=== PATIENT | male | born 1935 | race Caucasian/White ===

== ENCOUNTER 2020-08-20 14:08 | Inpatient (IN) | payer OTHER ==
[~2020-08-20] VITALS: Ht 165.1 cm; Wt 69.9 kg
--- NOTE | 2020-08-20 15:59 | NUR ---
family eula left contact # [phone]
--- NOTE | 2020-08-20 16:00 | NUR ---
[id number] home, cough, sob and fever x 1 week. Poor po intake x 3 weeks. 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 placed on 4L/min via nc. Patient a/ox3, attached to the monitor technician. IV line established, blood drawn and sent to lab.
--- NOTE | 2020-08-20 16:53 | NUR ---
MOVE SHEET SUBMITTED
[2020-08-20 17:06] LABS: BASOPHILS % (AUTO) 0.3 % (0.0-2.0); EOSINOPHILS % (AUTO) 0.2 % (0.0-6.0); HEMATOCRIT 38 % (39-51); HEMOGLOBIN 12.3 g/dL (13.5-17.5); LYMPHOCYTES # (AUTO) 1.1 /CMM (0.8-4.8); LYMPHOCYTES % (AUTO) 14.7 % (20.0-44.0); MEAN CORPUSCULAR HGB CONC 33 g/dl (31.0-36.0); MEAN CORPUSCULAR VOLUME 87 fL (80-96); MONOCYTES # (AUTO) 0.7 /CMM (0.1-1.30); MONOCYTES % (AUTO) 9.5 % (2.0-12.0); NEUTROPHILS # (AUTO) 5.7 /CMM (1.8-8.9); NEUTROPHILS % (AUTO) 75.3 % (43.0-81.0); PLATELET COUNT (AUTO) 355 /CMM (150-450); RED BLOOD CELL COUNT(AUTO) 4.33 MIL/uL (4.5-6.0); WHITE BLOOD COUNT (AUTO) 7.6 K/uL (4.3-11.0)
[2020-08-20] MEDS ORDERED: CEFTRIAXONE 1GM BAG (ER ONLY) 1 GM/50 ML PIGGYBACK IV ONE (17:30)
[2020-08-20] MEDS ORDERED: IV NS 0.9% 500 ML BAG IV ONE ×2 (17:30→18:30)
[2020-08-20] MEDS ORDERED: AZITHROMYCIN 500 MG in IV D5W 250 ML IV ONE (17:30)
[2020-08-20] MEDS ORDERED: DEXAMETHASONE SOD PHOSPHATE 10 MG/ML VIAL IV ONE (17:30)
[2020-08-20 17:40] LABS: CALCIUM, SERUM 8.6 mg/dL (8.5-10.1); CARBON DIOXIDE 20 mmol/L (21-32); CHLORIDE 104 mmol/L (98-107); CREATININE 3.2 mg/dL (0.6-1.3); GLUCOSE 127 mg/dL (74-106); POTASSIUM 4.8 mmol/L (3.5-5.1); SODIUM SERUM 138 mmol/L (136-145); UREA NITROGEN, BLOOD 66 mg/dL (7-18)
[2020-08-20 17:48] LABS: ALANINE AMINOTRANSFERASE 45 U/L (12-78); ALBUMIN 2.9 g/dL (3.4-5.0); ALKALINE PHOSPHATASE 71 U/L (46-116); ASPARTATE AMINOTRANSFERASE 41 U/L (15-37); B-TYPE NATRIURETIC PEPTIDE 404 PG/ML (0-125); BILIRUBIN,TOTAL 0.4 mg/dL (0.2-1.0); TOTAL PROTEIN, SERUM 7.8 g/dL (6.4-8.2)
[2020-08-20 17:52] LABS: D-DIMER 1.39 mg/L(FEU (0.17-0.50)
[2020-08-20] MEDS ORDERED: DEXAMETHASONE SOD PHOSPHATE 10 MG/ML VIAL ONE (17:57)
[2020-08-20] MEDS ORDERED: AZITHROMYCIN 500 MG VIAL ONE (17:57)
[2020-08-20] MEDS ORDERED: CEFTRIAXONE 1GM BAG (ER ONLY) 50 ML IV ONE (17:57)
[2020-08-20] MEDS ORDERED: AMLO-213 PO (18:11)
[2020-08-20] MEDS ORDERED: FERR325T28 PO (18:11)
[2020-08-20] MEDS ORDERED: OMEP20CA15 PO (18:11)
[2020-08-20] MEDS ORDERED: TELM80TA9 PO (18:11)
[2020-08-20] MEDS ORDERED: OMEG-72 PO (18:11)
[2020-08-20] MEDS ORDERED: HYDR-3895 PO (18:11)
[2020-08-20] MEDS ORDERED: TAMS-12 PO (18:11)
[2020-08-20] MEDS ORDERED: CETI10TA14 PO (18:11)
[2020-08-20] MEDS ORDERED: GABA-532 PO (18:11)
[2020-08-20] MEDS ORDERED: DICL50TA9 PO (18:11)
[2020-08-20] MEDS ORDERED: ALLO100T PO (18:11)
--- NOTE | 2020-08-20 18:12 | NUR ---
COVID POSITIVE RESULT PER LAB.
--- NOTE | 2020-08-20 19:51 | NUR ---
pt in bed sleeping. nad noted.
[2020-08-20 22:25] LABS: C-REACTIVE PROTEIN 19.2 mg/dL (0.0-0.9); FERRITIN 1746 ng/mL (8-388)
[2020-08-20 22:26] LABS: CREATINE KINASE, TOTAL 138 U/L (39-308)
[2020-08-21] MEDS ORDERED: MAGNESIUM HYDROXIDE 30 ML UDC PO PRN (02:00)
[2020-08-21] MEDS ORDERED: HYDROCODONE/APAP 5/325MG TABLET PO PRN (02:00)
[2020-08-21] MEDS ORDERED: ONDANSETRON HCL/PF 4 MG/2 ML VIAL IVP PRN (02:00)
[2020-08-21] MEDS ORDERED: HEPARIN SODIUM, PORCINE 5000 UNITS/1 ML VIAL ONE ×2 (02:48→22:57)
[2020-08-21] MEDS: HEPARIN SODIUM, PORCINE 5000 UNITS/1 ML VIAL SQ SCH ×3 (02:54→23:00)
--- NOTE | 2020-08-21 03:40 | NUR ---
PT IN BED SLEEPING. NAD NOTED.
[2020-08-21] MEDS ORDERED: PANTOPRAZOLE 40 MG TABLET.DR PO ONE (06:42)
[2020-08-21] MEDS: IV NS 0.9% 1,000 ML IV PRN (07:09)
[2020-08-21] MEDS: PANTOPRAZOLE 40 MG TABLET.DR PO SCH (07:09)
--- NOTE | 2020-08-21 07:31 | NUR ---
REPORT GIVEN TO DENISE ZHOU FOR ALYSHA.
--- NOTE | 2020-08-21 08:45 | NUR ---
RESTING QUIETLY, NAD NOTED, ON 6L VIA NC SATTING 92%. ABLE TO MAKE NEEDS KNOWN. EATING BREAKFAST. SITTING UPRIGHT IN ER BED.
[2020-08-21] MEDS ORDERED: AMLODIPINE BESYLATE 5 MG TABLET ONE (08:54)
[2020-08-21] MEDS ORDERED: cetrizine 10 MG TABLET ONE (08:54)
--- NOTE | 2020-08-21 09:43 | NUR ---
AM HEPARIN HELD D/T RECEIVING 5000UNITS SQ AT 0300 THIS MORNING.
[2020-08-21 10:06] LABS: BASOPHILS % (AUTO) 0.1 % (0.0-2.0); HEMATOCRIT 34 % (39-51); HEMOGLOBIN 11.1 g/dL (13.5-17.5); LYMPHOCYTES # (AUTO) 0.4 /CMM (0.8-4.8); LYMPHOCYTES % (AUTO) 10.5 % (20.0-44.0); MEAN CORPUSCULAR HGB CONC 33 g/dl (31.0-36.0); MEAN CORPUSCULAR VOLUME 86 fL (80-96); MONOCYTES # (AUTO) 0.3 /CMM (0.1-1.30); NEUTROPHILS # (AUTO) 3.1 /CMM (1.8-8.9); NEUTROPHILS % (AUTO) 82.4 % (43.0-81.0); PLATELET COUNT (AUTO) 349 /CMM (150-450); RED BLOOD CELL COUNT(AUTO) 3.95 MIL/uL (4.5-6.0); WHITE BLOOD COUNT (AUTO) 3.8 K/uL (4.3-11.0)
[2020-08-21] MEDS: ALLOPURINOL 100 MG TABLET PO SCH ×2 (10:33→17:58)
[2020-08-21] MEDS: hydrOXYzine PAMOATE 25 MG CAPSULE PO SCH (10:33)
[2020-08-21] MEDS: AMLODIPINE BESYLATE 10 MG TABLET PO SCH (10:33)
[2020-08-21] MEDS: FERROUS SULFATE (325 MG) 325 MG/TAB TABLET PO SCH ×2 (10:33→17:58)
[2020-08-21] MEDS: cetrizine 10 MG TABLET PO SCH (10:33)
[2020-08-21 10:51] LABS: ALANINE AMINOTRANSFERASE 38 U/L (12-78); ALBUMIN 2.3 g/dL (3.4-5.0); ALKALINE PHOSPHATASE 56 U/L (46-116); ASPARTATE AMINOTRANSFERASE 29 U/L (15-37); BILIRUBIN,TOTAL 0.3 mg/dL (0.2-1.0); CALCIUM, SERUM 8.1 mg/dL (8.5-10.1); CARBON DIOXIDE 18 mmol/L (21-32); CHLORIDE 108 mmol/L (98-107); CREATININE 2.8 mg/dL (0.6-1.3); GLUCOSE 206 mg/dL (74-106); MAGNESIUM 2.4 mg/dL (1.8-2.4); PHOSPHORUS 5.1 mg/dL (2.5-4.9); POTASSIUM 4.9 mmol/L (3.5-5.1); SODIUM SERUM 139 mmol/L (136-145); TOTAL PROTEIN, SERUM 6.6 g/dL (6.4-8.2); UREA NITROGEN, BLOOD 66 mg/dL (7-18)
--- NOTE | 2020-08-21 13:59 | NUR ---
PT AMBULATED TO RESTROOM, TOLERATED BUT O2 WENT DOWN TO MID 80S OFF O2 WITH EXERTION. STEADY GAIT. NOW BACK IN BED, ON O2, EATING LUNCH
--- NOTE | 2020-08-21 16:13 | NUR ---
Shona (bank worker), bethany to call in case of emergency
[2020-08-21] MEDS ORDERED: DEXAMETHASONE SOD PHOSPHATE 4 MG/ML VIAL IV ONE (17:00)
[2020-08-21] MEDS ORDERED: DEXAMETHASONE SOD PHOSPHATE 10 MG/ML VIAL ONE (17:59)
[2020-08-21] MEDS: AZITHROMYCIN 500 MG in IV D5W 250 ML IV SCH (18:34)
--- NOTE | 2020-08-21 19:30 | NUR ---
REC'D REPORT FROM AM SHIFT. REC'D PT IN BED, ON O2 4LNC. PT AMBULATORY STEADY GAIT, AAOX4, ABLE TO MAKE NEEDS KNOWN. DENIES ANY SOB. ON MONITOR, DENIES ANY PAIN/DISCOMFORT. VSS. NAD. WCTM
[2020-08-21] MEDS ORDERED: TAMSULOSIN 0.4 MG CAP.SR.24H ONE (22:58)
[2020-08-21] MEDS ORDERED: GABAPENTIN 100 MG CAPSULE ONE (22:58)
[2020-08-21] MEDS: TAMSULOSIN 0.4 MG CAP.SR.24H PO SCH (23:24)
[2020-08-21] MEDS: GABAPENTIN 100 MG CAPSULE PO SCH (23:25)
--- NOTE | 2020-08-22 05:30 | NUR ---
PT AMBULATED TO BATHROOM, WALKED WITH STEADY GAIT, DENIES ANY SOB.
[2020-08-22 06:18] LABS: HEMATOCRIT 34 % (39-51); HEMOGLOBIN 10.9 g/dL (13.5-17.5); LYMPHOCYTES # (AUTO) 0.5 /CMM (0.8-4.8); LYMPHOCYTES % (AUTO) 4.3 % (20.0-44.0); MEAN CORPUSCULAR HGB CONC 32 g/dl (31.0-36.0); MEAN CORPUSCULAR VOLUME 87 fL (80-96); MONOCYTES # (AUTO) 0.6 /CMM (0.1-1.30); MONOCYTES % (AUTO) 5.2 % (2.0-12.0); NEUTROPHILS # (AUTO) 10.6 /CMM (1.8-8.9); NEUTROPHILS % (AUTO) 90.5 % (43.0-81.0); PLATELET COUNT (AUTO) 407 /CMM (150-450); RED BLOOD CELL COUNT(AUTO) 3.89 MIL/uL (4.5-6.0); WHITE BLOOD COUNT (AUTO) 11.7 K/uL (4.3-11.0)
[2020-08-22 06:43] LABS: CREATINE KINASE, TOTAL 116 U/L (39-308)
[2020-08-22 06:44] LABS: C-REACTIVE PROTEIN 7.5 mg/dL (0.0-0.9)
--- NOTE | 2020-08-22 07:24 | NUR ---
pt req for cg to be called; to bring recreation program specialist and change of clothes, endorsed to am shift.
[2020-08-22] MEDS: PANTOPRAZOLE 40 MG TABLET.DR PO SCH (07:30)
[2020-08-22 08:43] LABS: ALANINE AMINOTRANSFERASE 36 U/L (12-78); ALBUMIN 2.4 g/dL (3.4-5.0); ALKALINE PHOSPHATASE 58 U/L (46-116); ASPARTATE AMINOTRANSFERASE 29 U/L (15-37); BILIRUBIN,TOTAL 0.2 mg/dL (0.2-1.0); CALCIUM, SERUM 8.3 mg/dL (8.5-10.1); CARBON DIOXIDE 18 mmol/L (21-32); CHLORIDE 110 mmol/L (98-107); CREATININE 2.6 mg/dL (0.6-1.3); GLUCOSE 141 mg/dL (74-106); POTASSIUM 5.2 mmol/L (3.5-5.1); SODIUM SERUM 141 mmol/L (136-145); TOTAL PROTEIN, SERUM 6.6 g/dL (6.4-8.2); UREA NITROGEN, BLOOD 66 mg/dL (7-18)
--- NOTE | 2020-08-22 08:43 | NUR ---
Patient awake alert to name forgetful @ times vitals taken and filed food tray given continue to monitor .
[2020-08-22] MEDS ORDERED: PANTOPRAZOLE 40 MG TABLET.DR PO ONE (09:17)
[2020-08-22] MEDS ORDERED: HEPARIN SODIUM, PORCINE 5000 UNITS/1 ML VIAL ONE ×2 (09:18→21:58)
[2020-08-22] MEDS: HEPARIN SODIUM, PORCINE 5000 UNITS/1 ML VIAL SQ SCH ×2 (09:22→21:42)
[2020-08-22] MEDS: AMLODIPINE BESYLATE 10 MG TABLET PO SCH (09:31)
[2020-08-22] MEDS: hydrOXYzine PAMOATE 25 MG CAPSULE PO SCH (09:31)
[2020-08-22] MEDS: FERROUS SULFATE (325 MG) 325 MG/TAB TABLET PO SCH ×2 (09:31→17:00)
[2020-08-22] MEDS: IV NS 0.9% 1,000 ML IV PRN (09:33)
[2020-08-22] MEDS: cetrizine 10 MG TABLET PO SCH (09:34)
[2020-08-22] MEDS: ALLOPURINOL 100 MG TABLET PO SCH ×2 (09:34→17:00)
--- NOTE | 2020-08-22 13:17 | NUR ---
Patient asleep but arousable non distress @ this time continue to monitor .
--- NOTE | 2020-08-22 17:14 | NUR ---
ESPERANZA RANGEL [id number] CELL [id number] CELL NUMBERS FOR CONTACT
[2020-08-22] MEDS: AZITHROMYCIN 500 MG in IV D5W 250 ML IV SCH (18:00)
--- NOTE | 2020-08-22 19:44 | NUR ---
Transfer care to Elvie ZHOU
--- NOTE | 2020-08-22 21:43 | NUR ---
PT RESTING COMFORTABLY. PROVIDED WITH BLANKETS, REMAINS ON MONITOR, AND PULSE OX.
[2020-08-22] MEDS ORDERED: TAMSULOSIN 0.4 MG CAP.SR.24H ONE (22:00)
[2020-08-22] MEDS ORDERED: GABAPENTIN 100 MG CAPSULE ONE (22:00)
[2020-08-22] MEDS: TAMSULOSIN 0.4 MG CAP.SR.24H PO SCH (22:08)
[2020-08-22] MEDS: GABAPENTIN 100 MG CAPSULE PO SCH (22:08)
--- NOTE | 2020-08-23 01:32 | NUR ---
PT SAT 87-90%. PT PRONED, SAT 91-93%. WILL PLACE PT IN SIMPLE MASK.
--- NOTE | 2020-08-23 01:47 | NUR ---
PT PLACED ON SIMPLE MASK 10L, SAT 95-97%.
[2020-08-23] MEDS: IV NS 0.9% 1,000 ML IV PRN ×2 (05:00→23:05)
--- NOTE | 2020-08-23 06:02 | NUR ---
PT'S SKIN NOTED TO BE WARM. TEMP WAS CHECKED, 100.4, WILL GIVE 650 MG TYLENOL. VSS. PT ON IV HYDRATION 100 MLS/HR, STILL ON 10L SIMPLE MASK SAT 97%.
[2020-08-23] MEDS ORDERED: ACETAMINOPHEN 325 MG TABLET ONE (06:05)
[2020-08-23] MEDS: ACETAMINOPHEN 325 MG TABLET PO PRN (06:05)
--- NOTE | 2020-08-23 06:15 | NUR ---
PT USED URINAL TO PEE. SAT @86%. AFTER USING URINAL PT PLACED ON HIS SIDE, SAT 92-94%. REMAINS ON FOLDED CLOTH TAPER AND PULSE OX. WILL CONTINUE TO MONITOR.
[2020-08-23 06:40] LABS: HEMATOCRIT 33 % (39-51); HEMOGLOBIN 11.2 g/dL (13.5-17.5); LYMPHOCYTES # (AUTO) 0.7 /CMM (0.8-4.8); LYMPHOCYTES % (AUTO) 4.7 % (20.0-44.0); MEAN CORPUSCULAR HGB CONC 34 g/dl (31.0-36.0); MEAN CORPUSCULAR VOLUME 91 fL (80-96); MONOCYTES # (AUTO) 0.5 /CMM (0.1-1.30); MONOCYTES % (AUTO) 3.7 % (2.0-12.0); NEUTROPHILS # (AUTO) 13.4 /CMM (1.8-8.9); NEUTROPHILS % (AUTO) 91.6 % (43.0-81.0); PLATELET COUNT (AUTO) 450 /CMM (150-450); RED BLOOD CELL COUNT(AUTO) 3.64 MIL/uL (4.5-6.0); WHITE BLOOD COUNT (AUTO) 14.6 K/uL (4.3-11.0)
[2020-08-23 06:59] LABS: CALCIUM, SERUM 8.5 mg/dL (8.5-10.1); CARBON DIOXIDE 20 mmol/L (21-32); CHLORIDE 110 mmol/L (98-107); CREATININE 2.4 mg/dL (0.6-1.3); GLUCOSE 113 mg/dL (74-106); MAGNESIUM 2.5 mg/dL (1.8-2.4); PHOSPHORUS 3.1 mg/dL (2.5-4.9); POTASSIUM 4.9 mmol/L (3.5-5.1); SODIUM SERUM 142 mmol/L (136-145); UREA NITROGEN, BLOOD 56 mg/dL (7-18)
[2020-08-23 07:21] LABS: FERRITIN 889 ng/mL (8-388)
[2020-08-23] MEDS: PANTOPRAZOLE 40 MG TABLET.DR PO SCH (09:00)
[2020-08-23] MEDS ORDERED: cetrizine 10 MG TABLET ONE (09:47)
[2020-08-23] MEDS ORDERED: AMLODIPINE BESYLATE 5 MG TABLET ONE (09:47)
[2020-08-23] MEDS ORDERED: HYDROCODONE/APAP 5/325MG TABLET ONE (09:47)
[2020-08-23] MEDS ORDERED: PANTOPRAZOLE 40 MG TABLET.DR PO ONE (09:47)
[2020-08-23] MEDS ORDERED: FERROUS SULFATE UDC 300 MG/5 ML UDC ONE (09:47)
[2020-08-23] MEDS: AMLODIPINE BESYLATE 10 MG TABLET PO SCH (09:53)
[2020-08-23] MEDS: ALLOPURINOL 100 MG TABLET PO SCH ×2 (09:53→16:46)
[2020-08-23] MEDS: FERROUS SULFATE (325 MG) 325 MG/TAB TABLET PO SCH ×2 (09:53→16:46)
[2020-08-23] MEDS: cetrizine 10 MG TABLET PO SCH (09:53)
[2020-08-23] MEDS: hydrOXYzine PAMOATE 25 MG CAPSULE PO SCH (09:53)
[2020-08-23] MEDS ORDERED: HEPARIN SODIUM, PORCINE 5000 UNITS/1 ML VIAL ONE (09:54)
[2020-08-23] MEDS: HEPARIN SODIUM, PORCINE 5000 UNITS/1 ML VIAL SQ SCH ×2 (09:56→23:04)
[2020-08-23 13:57] LABS: ABG BASE EXCESS -9.3 mmol/L; ABG OXYGEN SATURATION 89.5 % (92.0-98.5); ABG PCO2 23.2 mmHg (35.0-45.0); ABG PH 7.393 (7.350-7.450); ABG PO2 60.9 mmHg (75.0-100.0); AaDO2 485.1 mmHg; COHb 0.3 % (0.5-1.5); MetHb 0.4 % (0.0-1.5); O2Hb 88.9 % (94.0-97.0); SITE, ABG Right Radial; VENT MODE, BG NRB
--- NOTE | 2020-08-23 14:00 | NUR ---
pt desatting on nrb at 15l only satting at mid 80s. dr garcia notified. stat abgs ordered. per md start on hiflow o2.
--- NOTE | 2020-08-23 14:10 | NUR ---
rt by bedside started pt on hiflow o2. satting at 95% now.
[2020-08-23 14:28] LABS: C-REACTIVE PROTEIN 13.1 mg/dL (0.0-0.9)
[2020-08-23] MEDS: AZITHROMYCIN 500 MG in IV D5W 250 ML IV SCH (18:26)
--- NOTE | 2020-08-23 21:00 | NUR ---
report given to evy higuera at [facility]
[2020-08-23 21:10] VITALS: BP 114/63
--- NOTE | 2020-08-23 21:10 | NUR ---
radio television announcerornament setter note received patient via gurney with RN and RT. patient transferred to bed. a/ox4, occitan speaking. able to make basic needs known. on high flow o2 40l/min sat 94%. respirations are even and unlabored. no s/s ob noted at this time. no c/o pain at this time. external tele monitor reads sinus tachy hr 106. in no apparent distress. iv access in left forearm #18 patent and saline locked. initial physical assessment completed at this time. skin assessment completed, skin intact. precision inspector completed belongings list and obtained vital signs. bed is low and locked, hob elevated in semi fowlers, side rails up x2, maria luz light within reach, educated on use. will continue to monitor.
--- NOTE | 2020-08-23 21:19 | NUR ---
transferred to room 200
[2020-08-23 22:00] VITALS: BP 114/64
[2020-08-23] MEDS: GABAPENTIN 100 MG CAPSULE PO SCH (23:03)
[2020-08-23] MEDS: TAMSULOSIN 0.4 MG CAP.SR.24H PO SCH (23:03)
[2020-08-24] VITALS: BP 131/66
[2020-08-24] MEDS: ACETAMINOPHEN 325 MG TABLET PO PRN (00:08)
--- NOTE | 2020-08-24 00:09 | NUR ---
television installer note administered prn tylenol 650mg for temp 99.0. will reassess.
--- NOTE | 2020-08-24 02:57 | NUR ---
teletype mechanic note called lab to ask the status of the convalescent plasma unit #2. blood bank informed me that they currently do not have a unit available for this patient. she believes we need another consent for ever unit of convolesent plasma ordered. will inform AM shift to obtain consent from authorized ordering physicians.
[2020-08-24 04:00] VITALS: BP 167/76
[2020-08-24 04:25] VITALS: BP 150/59
--- NOTE | 2020-08-24 06:39 | NUR ---
teleservices representative closing note patient in bed. a/ox4. remains on high flow o2 60l/min sat 97%. no resp distress noted. no c/o pain noted. external tele monitor reads sinus rhythm. no distress noted. iv access maintained in left forearm #18 patent and saline locked. bed remains low and locked, hob elevated in semi fowlers, side rails up x2, maria luz light within reach. will endorse to next shift.
[2020-08-24 06:44] LABS: CALCIUM, SERUM 8.4 mg/dL (8.5-10.1); CARBON DIOXIDE 22 mmol/L (21-32); CHLORIDE 114 mmol/L (98-107); CREATININE 2.4 mg/dL (0.6-1.3); GLUCOSE 112 mg/dL (74-106); MAGNESIUM 2.5 mg/dL (1.8-2.4); PHOSPHORUS 3.5 mg/dL (2.5-4.9); POTASSIUM 4.9 mmol/L (3.5-5.1); SODIUM SERUM 148 mmol/L (136-145); UREA NITROGEN, BLOOD 46 mg/dL (7-18)
[2020-08-24 07:28] LABS: CREATINE KINASE, TOTAL 98 U/L (39-308)
[2020-08-24 07:39] LABS: FERRITIN 1501 ng/mL (8-388)
[2020-08-24 08:00] LABS: BASOPHILS % (AUTO) 0.1 % (0.0-2.0); EOSINOPHILS % (AUTO) 0.1 % (0.0-6.0); HEMATOCRIT 34 % (39-51); HEMOGLOBIN 11.3 g/dL (13.5-17.5); LYMPHOCYTES # (AUTO) 0.7 /CMM (0.8-4.8); LYMPHOCYTES % (AUTO) 5.9 % (20.0-44.0); MEAN CORPUSCULAR HGB CONC 33 g/dl (31.0-36.0); MEAN CORPUSCULAR VOLUME 93 fL (80-96); MONOCYTES # (AUTO) 0.4 /CMM (0.1-1.30); MONOCYTES % (AUTO) 2.9 % (2.0-12.0); NEUTROPHILS # (AUTO) 11.5 /CMM (1.8-8.9); PLATELET COUNT (AUTO) 424 /CMM (150-450); RED BLOOD CELL COUNT(AUTO) 3.67 MIL/uL (4.5-6.0); WHITE BLOOD COUNT (AUTO) 12.7 K/uL (4.3-11.0)
[2020-08-24 08:11] VITALS: BP 145/82
[2020-08-24] MEDS: hydrOXYzine PAMOATE 25 MG CAPSULE PO SCH (08:59)
[2020-08-24] MEDS: AMLODIPINE BESYLATE 10 MG TABLET PO SCH (08:59)
[2020-08-24] MEDS: cetrizine 10 MG TABLET PO SCH (08:59)
[2020-08-24] MEDS: FERROUS SULFATE (325 MG) 325 MG/TAB TABLET PO SCH ×2 (08:59→16:59)
[2020-08-24] MEDS: ALLOPURINOL 100 MG TABLET PO SCH ×2 (08:59→16:59)
[2020-08-24] MEDS: HEPARIN SODIUM, PORCINE 5000 UNITS/1 ML VIAL SQ SCH ×2 (09:00→21:30)
[2020-08-24] MEDS: PANTOPRAZOLE 40 MG TABLET.DR PO SCH (09:00)
[2020-08-24 12:11] VITALS: BP 142/73
[2020-08-24 13:11] LABS: *SPE A/G RATIO 0.8 (0.7-1.7); *SPE ALBUMIN 2.4 g/dL (2.9-4.4); *SPE ALPHA-1-GLOBULIN 0.4 g/dL (0.0-0.4); *SPE ALPHA-2-GLOBULIN 1.1 g/dL (0.4-1.0); *SPE BETA GLOBULIN 0.8 g/dL (0.7-1.3); *SPE GLOBULIN, TOTAL 3.2 g/dL (2.2-3.9); *SPE M-SPIKE 0.2 g/dL (Not Observed); *SPEGAMMA GLOBULIN 0.9 g/dL (0.4-1.8)
[2020-08-24] MEDS ORDERED: IV 1/2NS 1000 ML 1,000 ML IV PRN (13:30)
[2020-08-24 15:21] LABS: C-REACTIVE PROTEIN 135.4 mg/dL (0.0-0.9)
[2020-08-24] MEDS: AZITHROMYCIN 500 MG in IV D5W 250 ML IV SCH (17:41)
--- NOTE | 2020-08-24 19:30 | NUR ---
telecom sales consultant opening note received patient in bed. a/ox4. on high flow o2 60l/min. respirations are even, s/s sob when moving around. no c/o pain at this time. external tele monitor reads sinus rhythm hr 97. in no apparent distress. iv access in left forearm #18 running 1/2 ns @75ml/hr. bed is low and locked, hob elevated in semi fowlers, side rails up x2, maria luz light within reach. will monitor throughout shift.
[2020-08-24 20:00] VITALS: BP 133/92
[2020-08-24] MEDS: GABAPENTIN 100 MG CAPSULE PO SCH (21:24)
[2020-08-24] MEDS: TAMSULOSIN 0.4 MG CAP.SR.24H PO SCH (21:24)
[2020-08-25] VITALS: BP_SYST 145; BP_DIAS 70; BP_DIAS 71
--- NOTE | 2020-08-25 01:26 | NUR ---
RT pt became sob after having to use urinal. pt is stable, saturation maintained low 90s. will continue to monitor. davida sheriff, aware.
--- NOTE | 2020-08-25 01:45 | NUR ---
CASE WORKER NOTE CALLED MICHELLE FROM LAB IN BLOOD BANK DEPARTMENT. ASKED IF CONVALESCENT PLASMA IS READY TO BE PICKED UP OR IF IT HAS SALVADOR DELIVERED FOR PATIENT. MICHELLE INFORMED ME THEY ARE STILL WAITING ON A CONSENT FORM SIGNED BY THE DOCTOR FOR THE SECOND UNIT. WILL INFORM AM SHIFT TO OBTAIN.
[2020-08-25 04:00] VITALS: BP_SYST 141; BP_DIAS 110; BP_DIAS 71
[2020-08-25] MEDS: ACETAMINOPHEN 325 MG TABLET PO PRN (05:26)
--- NOTE | 2020-08-25 05:26 | NUR ---
telecommunications specialist note administered prn tylenol 650mg for temp 101.7 will also apply ice.
[2020-08-25 06:23] LABS: CALCIUM, SERUM 8.5 mg/dL (8.5-10.1); CARBON DIOXIDE 20 mmol/L (21-32); CHLORIDE 112 mmol/L (98-107); CREATININE 2.2 mg/dL (0.6-1.3); GLUCOSE 137 mg/dL (74-106); MAGNESIUM 2.3 mg/dL (1.8-2.4); PHOSPHORUS 2.9 mg/dL (2.5-4.9); POTASSIUM 4.6 mmol/L (3.5-5.1); SODIUM SERUM 145 mmol/L (136-145); UREA NITROGEN, BLOOD 41 mg/dL (7-18)
[2020-08-25 06:57] LABS: CREATINE KINASE, TOTAL 64 U/L (39-308); FERRITIN 1801 ng/mL (8-388)
--- NOTE | 2020-08-25 06:57 | NUR ---
telecommunications clerk closing note patient in bed. a/ox4. remains on high flow o2 60l/min. no res distress. no pain. ice still on patient. temp now 98.9 external tele monitor reads sinus rhythm/ sinus tach. no distress. iv access maintained in left forearm #18 running 1/2 ns @75ml/hr. bed remains low and locked, hob elevated in semi fowlers, side rails up x2, maria luz light within reach. will endorse to next shift
[2020-08-25] MEDS: cetrizine 10 MG TABLET PO SCH (08:34)
[2020-08-25] MEDS: hydrOXYzine PAMOATE 25 MG CAPSULE PO SCH (08:34)
[2020-08-25] MEDS: FERROUS SULFATE (325 MG) 325 MG/TAB TABLET PO SCH (08:34)
[2020-08-25] MEDS: PANTOPRAZOLE 40 MG TABLET.DR PO SCH (08:34)
[2020-08-25] MEDS: AMLODIPINE BESYLATE 10 MG TABLET PO SCH (08:35)
[2020-08-25] MEDS: ALLOPURINOL 100 MG TABLET PO SCH (08:35)
[2020-08-25] MEDS: HEPARIN SODIUM, PORCINE 5000 UNITS/1 ML VIAL SQ SCH (08:36)
[2020-08-25 09:41] LABS: EOSINOPHILS % (AUTO) 0.2 % (0.0-6.0); HEMATOCRIT 29 % (39-51); HEMOGLOBIN 10.3 g/dL (13.5-17.5); LYMPHOCYTES # (AUTO) 0.4 /CMM (0.8-4.8); LYMPHOCYTES % (AUTO) 3.6 % (20.0-44.0); MEAN CORPUSCULAR HGB CONC 35 g/dl (31.0-36.0); MEAN CORPUSCULAR VOLUME 100 fL (80-96); MONOCYTES # (AUTO) 0.4 /CMM (0.1-1.30); MONOCYTES % (AUTO) 3.4 % (2.0-12.0); NEUTROPHILS # (AUTO) 11.7 /CMM (1.8-8.9); NEUTROPHILS % (AUTO) 92.8 % (43.0-81.0); PLATELET COUNT (AUTO) 437 /CMM (150-450); RED BLOOD CELL COUNT(AUTO) 2.93 MIL/uL (4.5-6.0); WHITE BLOOD COUNT (AUTO) 12.6 K/uL (4.3-11.0)
--- NOTE | 2020-08-25 11:00 | NUR ---
MD AT BEDSIDE DR ADOLPH EDWARD. NOTIFIED OF CHANGE IN CONDITION: LABORED BREATHING. ORDERS RECEIVED WILL CARRY OUT
[2020-08-25] MEDS ORDERED: GUAIFENESIN 300 MG/15 ML UDC PO PRN (11:30)
--- NOTE | 2020-08-25 11:31 | NUR ---
PAGED NOTIFIED OF ABG RESULTS. ORDERS RECEIVED TO TRANSFER TO ICU FOR INTUBATION. PT RESTING COMFORTABLY IN BED. AWAKE, ALERT, ABLE TO MAKE NEEDS KNOWN. LABORED BREATHING NOTED.
--- NOTE | 2020-08-25 12:00 | NUR ---
PT TRANSFERRED TO ICU REPORT GIVEN TO CLINT ZHOU. TRANSFERRED VIA PT BED ON HORSE WRANGLER AND PORTABLE 02. ALL PATIENT MEDS AND BELONGINGS TRANSFERRED WITH PATIENT TO RECEIVING FLOOR.
[2020-08-25 12:31] LABS: ABG BASE EXCESS -7.9 mmol/L; ABG OXYGEN SATURATION 79.1 % (92.0-98.5); ABG PH 7.416 (7.350-7.450); ABG PO2 43.7 mmHg (75.0-100.0); AaDO2 645.3 mmHg; MetHb 0.3 % (0.0-1.5); O2Hb 78.9 % (94.0-97.0); SITE, ABG Right Radial; VENT MODE, BG high flow 60L / 100%
--- NOTE | 2020-08-25 12:55 | NUR ---
ASSISTED WITH PT INTUBATION, WITH MEDICATIONS GIVEN FOLLOWS. ETOMIDATE 20MG GIVEN VIA IV PUSH FOLLOWED BY RUCCYLCINIUM 80MG GIVEN IV PUSH.
--- NOTE | 2020-08-25 12:55 | NUR ---
@ 1255 pt. intubated by anesthesiologist due to low saturation and low pao2. pt. intubated with 7.5 et tube secured @ 25 cm center of the lips. CO2 detector changed to yellow color with breath sounds clear bilateral post intubation. vent settings below as order: AC 30 VT 400ML FIO2 100% PEEP +10 VENT PLUGGED INTO RED OUTLET WITH ALARMS ON AND FUNCTIONING. DAINA @ BEDSIDE. Addendum: 08/25/20 at 1319 by ROSALIA LUQUE RT Amended: Links added.
[2020-08-25 13:00] VITALS: BP 123/79
[2020-08-25] MEDS ORDERED: PROPOFOL 100 ML IV PRN (13:00)
[2020-08-25] MEDS ORDERED: DILTIAZEM HCL 50 MG IV IV ONE (13:00)
[2020-08-25 14:33] LABS: ABG BASE EXCESS -12.6 mmol/L; ABG OXYGEN SATURATION 89.1 % (92.0-98.5); ABG PCO2 65.6 mmHg (35.0-45.0); ABG PH 7.056 (7.350-7.450); ABG PO2 79.4 mmHg (75.0-100.0); COHb 0.1 % (0.5-1.5); MetHb 0.2 % (0.0-1.5); O2Hb 88.8 % (94.0-97.0); PEEP,BG 10 cm H2O; SITE, ABG Left Radial; VT, ABG 400 mL
--- NOTE | 2020-08-25 14:37 | NUR ---
vent changes below per dr. davenport: vt 500 ml Addendum: 08/25/20 at 1437 by ROSALIA LUQUE RT Amended: Links added.
--- NOTE | 2020-08-25 15:07 | NUR ---
PT TRANSFERRED TO ICU FOR INTUBATION POST ABG RESULTS. Addendum: 08/25/20 at 1508 by JESSICA FELIPE RT Amended: Links added.
[2020-08-25] MEDS ORDERED: PHENYLEPHRINE 100 MG in IV NS 0.9% 240 ML IV PRN (15:30)
[2020-08-25 16:47] LABS: ABG BASE EXCESS -13.3 mmol/L; ABG OXYGEN SATURATION 94.4 % (92.0-98.5); ABG PCO2 43.4 mmHg (35.0-45.0); ABG PH 7.152 (7.350-7.450); ABG PO2 93.5 mmHg (75.0-100.0); AaDO2 576.1 mmHg; COHb 0.3 % (0.5-1.5); MetHb 0.1 % (0.0-1.5); PEEP,BG 10 cm H2O; SITE, ABG Right Brachial; VT, ABG 500 mL
[2020-08-25] MEDS ORDERED: ROCURONIUM BROMIDE 50 MG/5 ML IV ONE (16:48)
[2020-08-25] MEDS ORDERED: ETOMIDATE 2 MG/ML VIAL IV ONE (16:48)
[2020-08-25] MEDS ORDERED: APIXABAN 2.5 MG TABLET PO SCH (17:00)
--- NOTE | 2020-08-25 17:13 | NUR ---
vent changes below per dr. davenport: vt 550 ml Addendum: 08/25/20 at 1714 by ROSALIA LUQUE RT Amended: Links added.
[2020-08-25] MEDS ORDERED: EPINEPHRINE (1:10,000) SYRINGE 1 MG/10 ML DISP.SYRIN IVP ONE (17:52)
[2020-08-25] MEDS ORDERED: FEE EMEERGENCY 1 MIN EA MC ONE (17:52)
[2020-08-25] MEDS ORDERED: SODIUM BICARBONATE SYR 50 MEQ/50 ML DISP.SYRIN IV ONE (17:52)
--- NOTE | 2020-08-25 17:53 | NUR ---
NOTED DECREASED HEART RATE IN RANGE OF 40s, VITAL SIGNS UNOBTAINABLE. CPR INITIATED, CODE BLUE INITIATED WELL. RESPONSE TEAM RESPONDED PROMPTLY, AND CONTINUED ACLS PER PROTOCOL. Addendum: 08/25/20 at 1903 by VIRGEN REES RN ER DOCTOR DAVIDSON CAME TO ROOM 257, AND WITNESSED CODE BLUE, AND PRONOUNCED TIME OF 061.
[2020-08-25] MEDS ORDERED: TOCILIZUMAB 400 MG in IV NS 0.9% 80 ML IV ONE (19:00)
--- NOTE | 2020-08-25 19:33 | NUR ---
CALLED SARAH HUBBARD (NEXT OF KIN) REGARDING PT BELONGINGS IS IN NURSING SUPERVISORS OFFICE. SHE STATED SHE WILL INFORM PT SON AND TO HOLD PT BELONGINGS UNTIL SON IS INFORMED.
== END 2020-08-25 17:53 | disposition expired | DRG 208 ==
LOC: ER 14:32 → TRANSITION 22:38 → TELE2 08-23 19:52 → ICU 08-25 12:07
PROVIDERS: ADMIT Nurse Practitioner Acute Care
PROC: XW13325 Transfusion of Convalescent Plasma (Nonautologous) into Peripheral Vein, Percutaneous Approach, New Technology Group 5 (ICD-10-PCS; 2020-08-22)
PROC: 5A1935Z Respiratory Ventilation, Less than 24 Consecutive Hours (ICD-10-PCS; principal; 2020-08-25)
PROC: 5A2204Z Restoration of Cardiac Rhythm, Single (ICD-10-PCS; 2020-08-25)
PROC: 0BH17EZ Insertion of Endotracheal Airway into Trachea, Via Natural or Artificial Opening (ICD-10-PCS; 2020-08-25)
DX: U07.1 COVID-19 (principal); J12.89 Other viral pneumonia; J96.01 Acute respiratory failure with hypoxia; N17.0 Acute kidney failure with tubular necrosis; E87.2 Acidosis; J98.11 Atelectasis; Z79.899 Other long term (current) drug therapy; I13.10 Hypertensive heart and chronic kidney disease without heart failure, with stage 1 through stage 4 chronic kidney disease, or unspecified chronic kidney disease; N18.9 Chronic kidney disease, unspecified; M19.90 Unspecified osteoarthritis, unspecified site; M10.9 Gout, unspecified; G62.9 Polyneuropathy, unspecified; T39.395A Adverse effect of other nonsteroidal anti-inflammatory drugs [NSAID], initial encounter; T44.5X5A Adverse effect of predominantly beta-adrenoreceptor agonists, initial encounter; Y92.009 Unspecified place in unspecified non-institutional (private) residence as the place of occurrence of the external cause; M06.9 Rheumatoid arthritis, unspecified; N40.0 Benign prostatic hyperplasia without lower urinary tract symptoms; I48.91 Unspecified atrial fibrillation
CPT/HCPCS: 31720; 36415; 36600; 71045-TC; 80048-TC; 80053-TC; 82550-TC; 82728-TC; 82803-TC; 82962-TC; 83605-TC; 83615-TC; 83735-TC; 83880; 83970; 84100-TC; 84155; 84165; 84484-TC; 85025-TC; 85378-TC; 85385-TC; 86140-TC; 86850-TC; 87081-TC; 94002-TC; 94640-TC; 94799-TC; 99082-TC; A4217; C9803; G0378; J0171; J0456; J0696; J1100; J1644; J2370; J2405; J3490; J7030; J7050; J7060; P9017-BL; Q0177; U0003